=== PATIENT | male | born 1985 | race Caucasian/White ===

== ENCOUNTER 2022-08-02 11:06 | Inpatient (IN) | payer OTHER ==
[2022-08-02] MEDS ORDERED: ASPIRIN 81 MG ONE (12:00)
[2022-08-02] MEDS ORDERED: ALPRAZolam 0.25 MG TAB PO PRN (12:02)
[2022-08-02] MEDS ORDERED: ASPIRIN 325 MG TAB PO STA (12:02)
[2022-08-02] MEDS ORDERED: NITROGLYCERIN SL TABS 0.4 MG TAB SUBLINGUAL PRN ×2 (12:02→13:32)
[2022-08-02] MEDS: SODIUM CHLORIDE 0.9% 1,000 ML in EMPTY BAG 1 BAG IV SCH ×2 (12:07→21:14)
[2022-08-02] MEDS ORDERED: MIDAZOLAM 2 MG/2 ML VIAL IV ONE (12:35)
[2022-08-02] MEDS: HEPARIN SODIUM 1,000 UN/ML (10ML VL) IV ONE ×2 (12:37→12:47)
[2022-08-02] MEDS ORDERED: PRASUGREL 10 MG TAB ONE (12:38)
[2022-08-02] MEDS ORDERED: PRASUGREL 10 MG TAB PO ONE (12:40)
[2022-08-02] MEDS ORDERED: IOPAMIDOL-370 125ML BTL INJ ONE (13:13)
[2022-08-02] MEDS ORDERED: IOPAMIDOL-370 100ML BTL INJ ONE (13:27)
[2022-08-02] MEDS ORDERED: RX INFO: IV CONTRAST WAS GIVEN 1 EACH MISC MISCELLANE PRN (13:32)
[2022-08-02] MEDS ORDERED: ATROPINE SULFATE 0.1 MG/ML 10ML SYRINGE IV PRN (13:32)
--- NOTE | 2022-08-02 13:41 | P.CARDCATH ---
Date of Procedure: 08/02/22 Description of Procedure: PERCUTANEOUS TRANSLUMINAL CORONARY ANGIOPLASTY CLINICAL INFORMATION: The patient is a 37-year-old male who presented to [facility] with symptoms of progressive dyspnea was found to be in CHF, had mild troponin elevation. His echocardiogram showed a severely impaired left ventricle syst olic function. He underwent cardiac catheterization and was found to have critical stenosis in the proximal left circumflex and OM1 was chronically occluded RCA.. Recommendations were made regarding angioplasty and stenting. The procedure as well as the risks and the complications were discussed with the patient who was in full understanding and agreement. PROCEDURE: The patient was brought to the blender laborer in the fasting and semi- sedated state, using guidewire exchange technique the 6-Palauan sheath in the right radial artery was exchanged to a new 6-Palauan sheath. A 6 Palauan EBU 3.75 guiding catheter was introduced into the system. After cannulating the left main, a 0.014 BMW J was advanced across the lesion and positioned distally. Another wire was positioned in the distal left circumflex area . Following that a 3.25 x 23 mm Xience sanjeev point stent was deployed. It was dilated at 14 yfn. After removing the balloon an IVUS Jewell Eye catheter was advanced and images were obtained. After removing the catheter of 4.5 x 23 mm Xience sanjeev point stent was positioned in the proximal circumflex and deployed at 14 yfn. After removing the balloon a 0.014 BMW J-wire was advanced in the distal left circumflex and subsequently at 2.25 x 12 mm Treck balloon was advanced and inflation at the bifurcation were done at 8 yfn. After the last inflation, after appropriate wait, the balloon and the guidewire were withdrawn back into the guiding catheter. Images were obtained and repeated. Those images reveal stable successful stenting. At that point, the guiding catheter, the balloon, and guidewire were removed. The sheath was removed. Hemostasis was obtained with and deployment of a TR band. There were no immediate complications. The patient was returned to the room in stable condition. Of note, the patient received 7000 units of heparin as well as oral loading dose of Effient. His ACT was followed. There was no immediate complications. He had chest discomfort with the inflations that resolved at the end of the procedure RESULTS: Successful stenting of the of the proximal left circumflex and OM1 with reduction of stenosis from 80 % to 0 %. RECOMMENDATIONS: The patient will continue on aspirin and Effient for 1 year in addition to aggressive coronary risks modifications and guideline Treatment. His left ventricle systolic function will be followed for further decision regarding possible PCI of the diagonal and or attempt to recanalize the RCA. The findings and recommendations were discussed with the patient and the family, they are in full understanding and agreement. Duration of sedation: 56 minutes
[2022-08-02] MEDS ORDERED: SODIUM CHLORIDE 0.9% 1,000 ML in EMPTY BAG 1 BAG IV SCH (13:45)
[2022-08-02] MEDS: carvediloL 12.5 MG TAB PO SCH (17:06)
[2022-08-02] MEDS: ALPRAZolam 0.5 MG TAB PO PRN (17:07)
[2022-08-02] MEDS: ATORVASTATIN 80 MG TAB PO SCH (20:08)
[2022-08-02] MEDS: SACUBITRIL/VALSARTAN 24 MG-26 MG TABLET PO SCH (20:08)
[2022-08-02] MEDS: MAG HYDROX/AL HYDROX/SIMETH 30 ML CUP PO PRN (20:20)
[2022-08-02] MEDS: ZOLPIDEM 5 MG TAB PO PRN (20:20)
[2022-08-02] MEDS: ACETAMINOPHEN TAB 325 MG TAB PO PRN (20:20)
[2022-08-02] MEDS: NICOTINE 21MG/24HR PATCH TRANSDERM SCH (20:25)
[2022-08-02 21:17] VITALS: RESP 16
--- NOTE | 2022-08-03 02:00 | HP ---
HISTORY AND PHYSICAL HISTORY OF PRESENT ILLNESS: This white male was transferred over from [facility] for heart catheterization for a stent placed apparently in the circumflex artery today. Possibly 1 or 2 stents for atypical chest pain. Risk factor modifications were discussed with the patient. MEDICATIONS: 1. Xanax p.r.n. 2. Lipitor 80 daily. 3. Aspirin 81 daily. 4. Coreg 12.5 b.i.d. 5. Farxiga 10 mg daily. 6. Lasix 20 mg daily. 7. Nicotine patch 21 mg daily. 8. Nitrostat p.r.n. 9. Effient 10 mg daily. 10.Entresto 24/26 b.i.d.. REVIEW OF SYSTEMS: A 14-point review of systems otherwise negative. PHYSICAL EXAMINATION: VITAL SIGNS: Temp 97.8, blood pressure 101/69, O2 98% on room air, pulse is 92, respiratory rate 16 to 18. GENERAL: He is giving appropriate answers. CARDIOVASCULAR: S1, S2. LUNGS: Clear. GI: Soft. HEMATOLOGY: Negative for Homans. PSYCH: Fair mood and affect. EXTREMITIES: No cyanosis, clubbing, or edema. OPHTHALMOLOGIC: Pupils equal, round, and reactive. ASSESSMENT: Status post PTCA for atypical chest pain, unstable angina. Risk factor modifications. Medications were reviewed with him. Possible discharge home in the morning. Followup palpation. MMODL / IJN: [id number] /
[2022-08-03] MEDS: carvediloL 12.5 MG TAB PO SCH ×2 (06:22→16:43)
[2022-08-03] MEDS: ALPRAZolam 0.5 MG TAB PO PRN ×3 (06:27→19:01)
[2022-08-03] MEDS: SPIRONOLACTONE 25 MG TAB PO SCH (08:50)
[2022-08-03] MEDS: NICOTINE 21MG/24HR PATCH TRANSDERM SCH (08:50)
[2022-08-03] MEDS: ASPIRIN 81 MG PO SCH (08:50)
[2022-08-03] MEDS: FUROSEMIDE 20 MG TAB PO SCH (08:50)
[2022-08-03] MEDS: DAPAGLIFLOZIN PROPANEDIOL 10 MG TABLET PO SCH (08:51)
[2022-08-03] MEDS: PRASUGREL 10 MG TAB PO SCH (08:51)
[2022-08-03] MEDS: SACUBITRIL/VALSARTAN 24 MG-26 MG TABLET PO SCH ×2 (08:51→20:23)
[2022-08-03] MEDS: SODIUM CHLORIDE 0.9% 1,000 ML in EMPTY BAG 1 BAG IV SCH ×2 (08:52→20:25)
[2022-08-03 09:56] LABS: African American GFR (CKD) >90 (>60 ml/min/1.73 sqM); Anion Gap 10 mmol/L; Blood Urea Nitrogen 27 mg/dL (9-20); Calcium 7.9 mg/dL (8.4-10.2); Carbon Dioxide 20 mmol/L (22-30); Chloride 106 mmol/L (98-107); Glucose 164 mg/dL (74-99); Non-African American GFR(CKD) >90 (>60 ml/min/1.73 sqM); Potassium 3.5 mmol/L (3.5-5.1); Sodium 136 mmol/L (137-145)
[2022-08-03 11:27] VITALS: BMI 29.1
--- NOTE | 2022-08-03 11:54 | CONS ---
CONSULTATION Ezekiel Rivera is a 37-year-old gentleman who was brought in from [facility] following a cardiac catheterization. He initially presented there with new onset congestive heart failure and [id number] elevation UT. He has severe disease involving proximal circumflex coronary artery and OM branch with a chronically occluded right coronary artery. He underwent angioplasty of the same. An echocardiogram done at [facility] shows an ejection fraction of 30% to 35%. He is at high risk for sudden cardiac as a result and he qualifies for life vest. We are going to arrange this prior to discharge. MMGUILLERMOL / IJN: [id number] /
--- NOTE | 2022-08-03 12:06 | P.PN ---
Subjective Progress Note Date: 08/03/22 HISTORY OF PRESENT ILLNESS: This is a 37-year-old male who underwent cardiac catheterization yesterday with Dr. Collazo. Patient underwent stenting of the proximal left circumflex and OM with reduction of stenosis from 80% to 0%. Patient was started on aspirin and Effient. His left ventricular systolic function will be followed for further decision regarding possible PCI of the diagonal and/or attempt to recannulized RCA. Echocardiogram reveals ejection fraction 30-35%. Patient examined this morning at the bedside. He denies any chest pain or pressure. He denies any shortness of breath. He has been ambulating to the bathroom without difficulty. Right radial cath site with pulse present. Vital signs are stable. PHYSICAL EXAM: VITAL SIGNS: Reviewed. GENERAL: Well-developed in no acute distress. NECK: Supple. No JVD or thyromegaly LUNGS: Respirations even and unlabored. Lungs essentially clear to auscultation bilaterally. HEART: Regular rate and rhythm. S1 and S2 heard. EXTREMITIES: Normal range of motion. No clubbing or cyanosis. Peripheral pulses intact. No lower extremity edema ASSESSMENT: Non-STEMI, status post PCI of the proximal left circumflex and OM Ischemic cardiomyopathy, ejection fraction 30-35% Nicotine dependence PLAN: Continue current cardiac medications Continue dual antiplatelet therapy with Effient and aspirin Continue high-intensity statin Patient will require LifeVest at the time of discharge secondary to severe cardiomyopathy and risk for sudden cardiac Further recommendations pending patient's course Possible discharge home tomorrow Nurse practitioner note has been reviewed by physician. Signing provider agrees with the documented findings, assessment, and plan of care. Objective - Vital Signs Vital signs: Vital Signs Temp 97.8 F 08/03/22 04:00 Pulse 85 08/03/22 08:00 Resp 16 08/03/22 08:00 BP 102/65 08/03/22 08:00 Pulse Ox 95 08/03/22 08:38 FiO2 Intake & Output 08/02/22 08/03/22 08/03/22 18:59 06:59 18:59 Intake Total 0 20 Output Total 400 Balance -400 20 Weight 97.522 kg 97.522 kg Intake: IV 0 20 Invasive Line 1 10 Invasive Line 2 10 Output: Urine 400 Other: Voiding Method Toilet Toilet Toilet # Voids 1 0 - Labs CBC & Chem 7: 08/03/22 08:05 Labs: Abnormal Lab Results - Last 24 Hours (Table) 08/03/22 Range/Units 08:05 Sodium 136 L (137-145) mmol/L Carbon Dioxide 20 L (22-30) mmol/L BUN 27 H (9-20) mg/dL Glucose 164 H (74-99) mg/dL Calcium 7.9 L (8.4-10.2) mg/dL
[2022-08-03] MEDS: MAG HYDROX/AL HYDROX/SIMETH 30 ML CUP PO PRN ×2 (16:43→20:24)
[2022-08-03] MEDS: ZOLPIDEM 5 MG TAB PO PRN (20:23)
[2022-08-03] MEDS: ATORVASTATIN 80 MG TAB PO SCH (20:23)
[2022-08-04] MEDS: ALPRAZolam 0.5 MG TAB PO PRN ×3 (00:28→14:42)
[2022-08-04] MEDS: carvediloL 12.5 MG TAB PO SCH ×2 (06:11→17:10)
[2022-08-04] MEDS: DAPAGLIFLOZIN PROPANEDIOL 10 MG TABLET PO SCH (08:45)
[2022-08-04] MEDS: FUROSEMIDE 20 MG TAB PO SCH (08:45)
[2022-08-04] MEDS: PRASUGREL 10 MG TAB PO SCH (08:45)
[2022-08-04] MEDS: NICOTINE 21MG/24HR PATCH TRANSDERM SCH (08:45)
[2022-08-04] MEDS: SPIRONOLACTONE 25 MG TAB PO SCH (08:45)
[2022-08-04] MEDS: ASPIRIN 81 MG PO SCH (08:45)
[2022-08-04] MEDS: SACUBITRIL/VALSARTAN 24 MG-26 MG TABLET PO SCH (08:45)
[2022-08-04 08:51] VITALS: TEMP 98.1
--- NOTE | 2022-08-04 11:12 | P.PN ---
Subjective Progress Note Date: 08/04/22 HISTORY OF PRESENT ILLNESS: This is a 37-year-old male who underwent cardiac catheterization yesterday with Dr. Collazo. Patient underwent stenting of the proximal left circumflex and OM with reduction of stenosis from 80% to 0%. Patient was started on aspirin and Effient. His left ventricular systolic function will be followed for further decision regarding possible PCI of the diagonal and/or attempt to recannulized RCA. Echocardiogram reveals ejection fraction 30-35%. Patient examined this morning at the bedside. He denies any chest pain or pressure. He denies any shortness of breath. He has been ambulating to the bathroom without difficulty. Right radial cath site with pulse present. Vital signs are stable. 08/04/2022 Patient examined this morning at the bedside. Patient denies chest pain or pressure. He denies shortness of breath. Vital signs are stable. PHYSICAL EXAM: VITAL SIGNS: Reviewed. GENERAL: Well-developed in no acute distress. NECK: Supple. No JVD or thyromegaly LUNGS: Respirations even and unlabored. Lungs essentially clear to auscultation bilaterally. HEART: Regular rate and rhythm. S1 and S2 heard. EXTREMITIES: Normal range of motion. No clubbing or cyanosis. Peripheral pulses intact. No lower extremity edema ASSESSMENT: Non-STEMI, status post PCI of the proximal left circumflex and OM Ischemic cardiomyopathy, ejection fraction 30-35% Nicotine dependence PLAN: Continue current cardiac medications Continue dual antiplatelet therapy with Effient and aspirin Continue high-intensity statin Patient will require LifeVest at the time of discharge secondary to severe cardiomyopathy and risk for sudden cardiac Further recommendations pending patient's course Anticipate discharge home this afternoon Nurse practitioner note has been reviewed by physician. Signing provider agrees with the documented findings, assessment, and plan of care. Objective - Vital Signs Vital signs: Vital Signs Temp 98.1 F 08/04/22 08:51 Pulse 86 08/04/22 08:51 Resp 16 08/04/22 08:51 BP 112/64 08/04/22 08:51 Pulse Ox 97 08/04/22 08:51 FiO2 Intake & Output 08/03/22 08/04/22 08/04/22 18:59 06:59 18:59 Intake Total 740 Balance 740 Weight 97.522 kg Intake: IV 20 Invasive Line 1 10 Invasive Line 2 10 Oral 720 Other: Voiding Method Toilet Toilet Toilet # Voids 2 1 1 - Labs CBC & Chem 7: 08/03/22 08:05
[2022-08-04 11:53] VITALS: BP 134/84; PULSE 84
[2022-08-04] MEDS: MAG HYDROX/AL HYDROX/SIMETH 30 ML CUP PO PRN (14:40)
[2022-08-04] MEDS: ACETAMINOPHEN TAB 325 MG TAB PO PRN (14:42)
--- NOTE | 2022-08-04 23:10 | PN ---
PROGRESS NOTE DATE OF SERVICE: 08/03/2022 SUBJECTIVE: Status post PTCA of the obtuse marginal. He is having no chest pain or shortness of breath. No lightheadedness, syncope, risk factors are reviewed with the patient. OBJECTIVE: VITAL SIGNS: Reviewed. CARDIOVASCULAR: S1, S2. LUNGS: Clear. GI: Soft. HEMATOLOGY: Negative for Homans. ASSESSMENT: 1. Coronary artery disease, status post PTCA. 2. Ischemic cardiomyopathy. 3. Hypertension. 4. Dyslipidemia. 5. Rule out sleep apnea. Continue current treatments. Discharge home in the morning. MMODL / IJN: [id number] /
--- NOTE | 2022-08-04 23:52 | DS ---
DISCHARGE SUMMARY DISCHARGE MEDICATIONS: 1. Xanax 0.5 q.6h p.r.n. 2. Aspirin 81 daily. 3. Lipitor 80 daily. 4. Coreg 12.5 b.i.d. 5. Farxiga 10 mg daily. 6. Lasix 20 mg daily. 7. Habitrol nicotine patch 21 mg daily. 8. Nitrostat 0.4 mg sublingual q.3-5 hours. 9. Effient 10 mg daily. 10.Entresto b.i.d. 11.Spironolactone 25 mg daily . CONDITION: Stable. PROGNOSIS: Guarded. ACTIVITY: Ambulate as tolerated. HOSPITAL COURSE: A 37-year-old white male, who was transferred from the other hospital, [facility] for stent placement. Echo showed ejection fraction 35% to 40%. He had a stent with Cardiology to proximal left circumflex and OM, reduction of stenosis from 80 to 0. Started on aspirin and Effient and medicines as mentioned above. He will follow up as an outpatient. He had a LifeVest to go home with. Condition stable. Prognosis guarded. Ambulate as tolerated. Follow up in a week. MMODL / IJN: [id number] /
--- NOTE | 2022-08-08 09:36 | CDI ---
Documentation Clarification Form Date: 08/08/22 From: Dora Noyola Admit Date: 08/02/2022 1:27:00 PM Patient Name: Ezekiel Rivera Visit Number: [id number] Discharge Date: 08/04/2022 5:13:00 PM ATTENTION: The Clinical Documentation Specialists (CDI) and [facility] Coding Staff appreciate your assistance in clarifying documentation. Please respond to the clarification below the line at the bottom and electronically sign. The CDI & [facility] Coding staff will review the response and follow-up if needed. Please note: Queries are made part of the Legal Health Record. If you have any questions, please contact the author of this message via ITS. Dr. Javier Wright, Your patient has the documented diagnosis of unspecified CHF in your consult on 08/03. Additional information regarding the type & acuity of CHF is requested. History/Risk Factors: No previous hx of cardiac disease except hypertension, Clinical Indicators: Patient transferred from [facility] following cardiac catherization with NSTEMI and new onset of CHF. VS/Pulse OX: T 98.2, P 101, R 18, BP 125/70, O2 93 [facility] 08/02 BNP: 110 [facility] 07/31 Echocardiogram Results: The left ventricle is normal size. There is global hypokinesis of the left ventricle. Mild concentric left ventricular hypertrophy. Left ventricular systolic function is mild to moderately decreased. LVEF is 30-35%. The left ventricular diastolic function is indeterminate due to arrhythmia. [facility] Chest CT: without PE, mild cardiomegaly, trace bilateral pleural effusions and mild central alveolar edema less likely acute infiltrate. CHF exacerbation and for fluid overload is suspected. Treatment: Entresto PO, Lasix PO In your professional opinion, can you please clarify the [acuity and type] of CHF if known? [ x ] Acute Systolic Heart Failure (reduced EF) [ ] Acute Diastolic Heart Failure (preserved EF) [ ] Acute Systolic & Diastolic Heart Failure [ ] Other, please specify [ ] Unable to determine CELSOD
== END 2022-08-04 17:13 | disposition home or self-care (01) | DRG 174 ==
LOC: 3SCARD 13:27
PROVIDERS: ADMIT Family Medicine; ATTEND Family Medicine
PROC: 027135Z Dilation of Coronary Artery, Two Arteries with Two Drug-eluting Intraluminal Devices, Percutaneous Approach (ICD-10-PCS; principal; 2022-08-02 16:05)
PROC: B240ZZ3 Ultrasonography of Single Coronary Artery, Intravascular (ICD-10-PCS; principal; 2022-08-02 16:05)
DX: I21.4 Non-ST elevation (NSTEMI) myocardial infarction (principal); I50.21 Acute systolic (congestive) heart failure; I11.0 Hypertensive heart disease with heart failure; E78.5 Hyperlipidemia, unspecified; I25.110 Atherosclerotic heart disease of native coronary artery with unstable angina pectoris; I25.5 Ischemic cardiomyopathy; Z28.310 Unvaccinated for COVID-19; F17.200 Nicotine dependence, unspecified, uncomplicated; Z71.6 Tobacco abuse counseling; Z79.82 Long term (current) use of aspirin; Z79.84 Long term (current) use of oral hypoglycemic drugs; Z79.02 Long term (current) use of antithrombotics/antiplatelets; Z79.899 Other long term (current) drug therapy
CPT/HCPCS: 80048; 92978; 94760

== ENCOUNTER → 2023-02-17 | Outpatient (CLI) | payer OTHER ==
--- NOTE | 2023-02-17 18:37 | CA ---
Transthoracic Echo Report Name: Ezekiel Rivera Age: 37 Gender: M : 1985 Exam Date: 02/17/2023 17:14 Exam Location: [place] [facility] Ht (in): 72 Wt (lb): 215 Ordering Physician: Perez Wells MD Attending/Referring Phys: Russell ABEL Senior Mainframe Developer Yaima Maza RDCS Procedure CPT: Indications: I50.9, R94.30 HEART FAILURE, UNSPECIFIED Cardiac Hx: Technical Quality: Fair Contrast 1: Total Dose (mL): Contrast 2: Total Dose (mL): MEASUREMENTS (Male / Female) Normal Values 2D ECHO LV Diastolic Diameter PLAX 2.9 cm 4.2 - 5.9 / 3.9 - 5.3 cm LV Systolic Diameter PLAX 2.2 cm IVS Diastolic Thickness 1.2 cm 0.6 - 1.0 / 0.6 - 0.9 cm LVPW Diastolic Thickness 1.1 cm 0.6 - 1.0 / 0.6 - 0.9 cm LV Relative Wall Thickness 0.8 RV Internal Dim ED PLAX 3.5 cm LV Diastolic Volume MOD BP 154.1 cm??? 67 - 155 / 56 - 104 cm??? LV Systolic Volume MOD BP 78.5 cm??? 22 - 58 / 19 - 49 cm??? LV Ejection Fraction MOD BP 49.0 % >= 55 % LV Cardiac Index MOD BP 2723.9 cm???/min???m??? LV Diastolic Volume MOD 4C 173.5 cm??? LV Systolic Volume MOD 4C 82.0 cm??? LV Ejection Fraction MOD 4C 52.7 % LV Cardiac Index MOD 4C 3298.8 cm???/min???m??? LV Diastolic Length 4C 10.0 cm LV Systolic Length 4C 8.8 cm LV Diastolic Volume MOD 2C 125.7 cm??? LV Systolic Volume MOD 2C 70.0 cm??? LV Ejection Fraction MOD 2C 44.3 % LV Cardiac Index MOD 2C 2008.3 cm???/min???m??? LV Diastolic Length 2C 9.0 cm LV Systolic Length 2C 8.1 cm LA Volume 82.4 cm??? 18 - 58 / 22 - 52 cm??? LA Volume Index 36.7 cm???/m??? 16 - 28 cm???/m??? M-MODE Aortic Root Diameter MM 3.6 cm LA Systolic Diameter MM 3.3 cm LA Ao Ratio MM 0.9 AV Cusp Separation MM 2.2 cm DOPPLER AV Peak Velocity 95.3 cm/s AV Peak Gradient 3.6 mmHg AV Mean Velocity 77.7 cm/s AV Mean Gradient 2.5 mmHg AV Velocity Time Integral 18.6 cm LVOT Peak Velocity 90.0 cm/s LVOT Peak Gradient 3.2 mmHg LVOT Velocity Time Integral 19.2 cm MV Area PHT 4.0 cm??? Mitral E Point Velocity 62.3 cm/s Mitral A Point Velocity 43.0 cm/s Mitral E to A Ratio 1.5 MV Deceleration Time 191.7 ms MV E' Velocity 7.7 cm/s Mitral E to MV E' Ratio 8.1 TR Peak Velocity 189.8 cm/s TR Peak Gradient 14.4 mmHg Right Ventricular Systolic Press 19.4 mmHg FINDINGS Left Ventricle Mildly increased septal wall thickness. Moderately increased left ventricular systolic volume. Mildly decreased left ventricular ejection fraction. Left ventricular ejection fraction is estimated at 50 %. Right Ventricle Normal right ventricular size and function. Right ventricular systolic pressure within normal limits. Right Atrium Normal right atrial size. Left Atrium Moderately increased left atrial volume. Mildly increased left atrial area. Mitral Valve Structurally normal mitral valve. Mild mitral regurgitation. Aortic Valve Trileaflet aortic valve. No aortic valve stenosis or regurgitation. Tricuspid Valve Structurally normal tricuspid valve. Mild tricuspid regurgitation. Pulmonic Valve Trace pulmonic regurgitation. Pericardium No pericardial effusion. Aorta Normal size aortic root and proximal ascending aorta. CONCLUSIONS Left ventricle systolic function of the lower limits of normal, increased LV mass Previewed by: Dr. Duran Morales MD (Electronically Signed) Final Date: 17 February 2023 18:36
== END | disposition home or self-care (01) ==
LOC: RADECHMAIN 17:10
PROVIDERS: ATTEND Family Medicine
DX: I50.9 Heart failure, unspecified (principal); R94.30 Abnormal result of cardiovascular function study, unspecified
CPT/HCPCS: 93306